=== PATIENT | female | born 1980 | race Caucasian/White ===

== ENCOUNTER 2017-06-06 18:18 | Emergency (ER) | payer OTHER ==
[~2017-06-06] VITALS: Ht 160 cm; Wt 104.3 kg
[~2017-06-06 18:18] MED LIST: CEPACOL SORE T1 EACH PO; CEPH500 PO; DOCU100 PO; HYDR1TAB94 PO; IBUP800 PO; Norco 5-325 Ta1 EACH PO; PROM25 PO; PSEU120ER PO; RANI150 PO; SIME80CH PO; Tamiflu75 MG PO; Ultram50 MG PO; Verotin-Gr Cap1 EACH PO
[2017-06-06 19:21] LABS: Bilirubin, Urine Neg (Neg); Blood, Urine 1+ (Neg); Glucose Qualitative, Urine Neg (Neg); Ketones, Urine Neg (Neg); Leukocyte Esterase, Urine 2+ (Neg); Nitrite, Urine Neg (Neg); Protein, Urine Neg (Neg); Specific Gravity, Urine 1.025 (1.003-1.022); Urobilinogen, Urine NORM (Normal)
[2017-06-06 19:29] LABS: Appearance, Urine Clear (Clear); Color, Urine Yellow (P-Yellow)
[2017-06-06 19:31] LABS: Bacteria Few /hpf; Squamous Epithelial Cells Few /hpf (Few)
[2017-06-06 19:37] LABS: BASOPHILS ABSOLUTE AUTO 0.03 K/mm3 (0.00-0.23); BASOPHILS PERCENT AUTO 0 % (0-2); EOSINOPHILS ABSOLUTE AUTO 0.33 K/mm3 (0.00-0.68); EOSINOPHILS PERCENT AUTO 5 % (0-6); Hematocrit 42.7 % (33.0-51.0); Hemoglobin 14.1 g/dL (11.5-16.0); IMMATURE GRAN ABSOLUTE AUTO 0.01 K/mm3 (0.00-0.10); IMMATURE GRAN PERCENT AUTO 0 % (0-1); LYMPHOCYTES ABSOLUTE AUTO 2.05 K/mm3 (0.84-5.20); LYMPHOCYTES PERCENT AUTO 29 % (21-46); MONOCYTES ABSOLUTE AUTO 0.45 K/mm3 (0.16-1.47); MONOCYTES PERCENT AUTO 6 % (4-13); Mean Corpuscular HGB 29.6 pg (26.0-34.0); Mean Corpuscular Volume 90 fL (80-100); Mean Platelet Volume 10.6 fL (9.1-12.4); NEUTROPHILS ABSOLUTE AUTO 4.28 K/mm3 (1.96-9.15); NEUTROPHILS PERCENT AUTO 60 % (41-73); Platelet Count 227 K/mm3 (150-400); RDW Standard Deviation 39.4 fL (35.1-46.3); Red Blood Cell Count 4.76 M/mm3 (3.80-5.20); White Blood Cell Count 7.15 K/mm3 (4.00-11.30)
[2017-06-06 19:49] LABS: Alanine Aminotransfer (ALT/SGP 25 U/L (12-78); Albumin, Blood 3.5 g/dL (3.4-5.0); Albumin/Globulin Ratio 0.8 (0.8-1.8); Alk Phos 77 U/L (50-136); Anion Gap 7 mmol/L (6-16); Aspartate Aminotrans (AST/SGOT 22 U/L (12-37); Bilirubin, Total 0.3 mg/dL (0.1-1.0); Blood Urea Nitrogen 19 mg/dL (8-24); Bun/Creatinine Ratio 29.4 (12.0-20.0); CO2, Blood 28 mmol/L (21-32); Calcium, Blood 9.2 mg/dL (8.5-10.1); Chloride, Blood 106 mmol/L (98-108); Creatinine, Blood 0.65 mg/dL (0.40-1.00); Globulin, Blood 4.2 g/dL (2.2-4.0); Glomerular Filtration Rate >60 (60-); Glucose, Blood 95 mg/dL (70-99); Potassium, Blood 3.8 mmol/L (3.5-5.5); Sodium, Blood 141 mmol/L (136-145); Total Protein, Blood 7.7 g/dL (6.4-8.2)
[2017-06-06] MEDS ORDERED: CEPH500 PO (23:06)
[2017-06-07] MEDS ORDERED: Zofran4 MG PO (13:34)
[2017-06-07] MEDS ORDERED: Naprosyn500 MG PO (13:34)
== END 2017-06-07 00:17 | disposition home or self-care (01) ==
LOC: ER 18:18
PROVIDERS: Emergency Medicine
DX: N39.0 Urinary tract infection, site not specified (principal); N83.202 Unspecified ovarian cyst, left side; Z88.5 Allergy status to narcotic agent
CPT/HCPCS: 36415; 74177; 76830; 76856; 80053; 81001; 81025; 83690; 85025; 87086; 96361; 96374; 96375; 96376; 99284; J1885; J2270; J7030; Q9967

== ENCOUNTER 2017-06-07 12:06 | Emergency (ER) | payer OTHER ==
[~2017-06-07] VITALS: Ht 160 cm; Wt 95.2 kg
[2017-06-07] MEDS ORDERED: Naprosyn500 MG PO (13:34)
[2017-06-07] MEDS ORDERED: Zofran4 MG PO (13:34)
== END 2017-06-07 14:05 | disposition home or self-care (01) ==
LOC: ER 12:06
DX: N80.9 Endometriosis, unspecified (principal); N83.202 Unspecified ovarian cyst, left side; Z88.5 Allergy status to narcotic agent; Z79.2 Long term (current) use of antibiotics
CPT/HCPCS: 96374; 96375; 99283; J1885; J2060; J2405

== ENCOUNTER 2017-12-23 19:24 | Emergency (ER) | payer OTHER ==
[~2017-12-23] VITALS: Ht 172.7 cm; Wt 85.7 kg
[~2017-12-23 19:24] MED LIST changes: +Naprosyn500 MG PO; +Zofran4 MG PO
[2017-12-23 20:11] LABS: BASOPHILS ABSOLUTE AUTO 0.06 K/mm3 (0.00-0.23); BASOPHILS PERCENT AUTO 1 % (0-2); EOSINOPHILS ABSOLUTE AUTO 0.28 K/mm3 (0.00-0.68); EOSINOPHILS PERCENT AUTO 4 % (0-6); Hematocrit 38.7 % (33.0-51.0); IMMATURE GRAN ABSOLUTE AUTO 0.01 K/mm3 (0.00-0.10); IMMATURE GRAN PERCENT AUTO 0 % (0-1); LYMPHOCYTES ABSOLUTE AUTO 2.28 K/mm3 (0.84-5.20); LYMPHOCYTES PERCENT AUTO 30 % (21-46); MONOCYTES ABSOLUTE AUTO 0.56 K/mm3 (0.16-1.47); MONOCYTES PERCENT AUTO 8 % (4-13); Mean Corpuscular HGB 31.3 pg (26.0-34.0); Mean Corpuscular HGB Conc 33.6 g/dL (31.5-36.5); Mean Corpuscular Volume 93 fL (80-100); Mean Platelet Volume 11.3 fL (9.1-12.4); NEUTROPHILS PERCENT AUTO 58 % (41-73); Platelet Count 240 K/mm3 (150-400); RDW Standard Deviation 41.5 fL (35.1-46.3); Red Blood Cell Count 4.16 M/mm3 (3.80-5.20); White Blood Cell Count 7.49 K/mm3 (4.00-11.30)
[2017-12-23 20:30] LABS: Alanine Aminotransfer (ALT/SGP 58 U/L (12-78); Albumin, Blood 3.3 g/dL (3.4-5.0); Albumin/Globulin Ratio 0.8 (0.8-1.8); Alk Phos 63 U/L (50-136); Anion Gap 7 mmol/L (6-16); Aspartate Aminotrans (AST/SGOT 30 U/L (12-37); Bilirubin, Total 0.4 mg/dL (0.1-1.0); Blood Urea Nitrogen 10 mg/dL (8-24); Bun/Creatinine Ratio 10.4 (12.0-20.0); CO2, Blood 26 mmol/L (21-32); Calcium, Blood 8.5 mg/dL (8.5-10.1); Chloride, Blood 107 mmol/L (98-108); Creatinine, Blood 0.96 mg/dL (0.40-1.00); Globulin, Blood 4.1 g/dL (2.2-4.0); Glomerular Filtration Rate >60 (60-); Glucose, Blood 90 mg/dL (70-99); Potassium, Blood 3.6 mmol/L (3.5-5.5); Sodium, Blood 140 mmol/L (136-145); Total Protein, Blood 7.4 g/dL (6.4-8.2)
[2017-12-23 21:05] LABS: Source, Urine Clean Catch
[2017-12-23 21:21] LABS: Appearance, Urine Clear (Clear); Bilirubin, Urine Neg (Neg); Blood, Urine 1+ (Neg); Color, Urine Yellow (P-Yellow); Glucose Qualitative, Urine Neg (Neg); Ketones, Urine Neg (Neg); Leukocyte Esterase, Urine Neg (Neg); Nitrite, Urine Neg (Neg); Protein, Urine Neg (Neg); Urobilinogen, Urine 2+ (Normal)
[2017-12-23 21:23] LABS: Bacteria Not Seen /hpf; Squamous Epithelial Cells Few /hpf (Few); White Blood Cells, Urine 0-2 /hpf (0-5); Yeast/Fungi Urine Few /hpf
[2017-12-24] MEDS ORDERED: Ultram50 MG PO (00:35)
[2017-12-24] MEDS ORDERED: Kristalose20 GM PO (00:35)
[2017-12-24] MEDS ORDERED: IBUP400 PO (00:35)
== END 2017-12-24 00:51 | disposition home or self-care (01) ==
LOC: ER 19:24
PROVIDERS: Emergency Medicine
DX: K59.00 Constipation, unspecified (principal); Z88.5 Allergy status to narcotic agent
CPT/HCPCS: 36415; 74176; 80053; 81001; 81025; 83690; 85025; 87086; 96374; 96375; 99284-25; J1885; J2405; J3010

== ENCOUNTER 2018-06-03 15:54 | Emergency (ER) | payer OTHER ==
[~2018-06-03] VITALS: Ht 160 cm; Wt 86.2 kg
[~2018-06-03 15:54] MED LIST changes: +IBUP400 PO; +Kristalose20 GM PO
[2018-06-03 17:05] LABS: BASOPHILS ABSOLUTE AUTO 0.05 K/mm3 (0.00-0.23); BASOPHILS PERCENT AUTO 1 % (0-2); EOSINOPHILS ABSOLUTE AUTO 0.26 K/mm3 (0.00-0.68); EOSINOPHILS PERCENT AUTO 4 % (0-6); Hematocrit 41.2 % (33.0-51.0); Hemoglobin 13.7 g/dL (11.5-16.0); IMMATURE GRAN ABSOLUTE AUTO 0.01 K/mm3 (0.00-0.10); IMMATURE GRAN PERCENT AUTO 0 % (0-1); LYMPHOCYTES ABSOLUTE AUTO 2.36 K/mm3 (0.84-5.20); LYMPHOCYTES PERCENT AUTO 36 % (21-46); MONOCYTES ABSOLUTE AUTO 0.53 K/mm3 (0.16-1.47); MONOCYTES PERCENT AUTO 8 % (4-13); Mean Corpuscular HGB 31.9 pg (26.0-34.0); Mean Corpuscular HGB Conc 33.3 g/dL (31.5-36.5); Mean Corpuscular Volume 96 fL (80-100); Mean Platelet Volume 10.4 fL (9.1-12.4); NEUTROPHILS ABSOLUTE AUTO 3.28 K/mm3 (1.96-9.15); NEUTROPHILS PERCENT AUTO 50 % (41-73); Platelet Count 255 K/mm3 (150-400); RDW Standard Deviation 42.1 fL (35.1-46.3); White Blood Cell Count 6.49 K/mm3 (4.00-11.30)
[2018-06-03 17:35] LABS: Anion Gap 5 mmol/L (6-16); Blood Urea Nitrogen 15 mg/dL (8-24); Bun/Creatinine Ratio 22.6 (12.0-20.0); CO2, Blood 29 mmol/L (21-32); Calcium, Blood 8.7 mg/dL (8.5-10.1); Chloride, Blood 106 mmol/L (98-108); Creatinine, Blood 0.67 mg/dL (0.40-1.00); Glomerular Filtration Rate >60 (60-); Glucose, Blood 112 mg/dL (70-99); Potassium, Blood 3.9 mmol/L (3.5-5.5); Sodium, Blood 140 mmol/L (136-145)
[2018-06-03] MEDS ORDERED: BIRTH CONTROL (17:44)
[2018-06-03 18:43] LABS: Source, Urine Clean Catch
[2018-06-03 18:46] LABS: Bilirubin, Urine Neg (Neg); Blood, Urine 1+ (Neg); Glucose Qualitative, Urine Neg (Neg); Ketones, Urine Neg (Neg); Leukocyte Esterase, Urine Neg (Neg); Nitrite, Urine Neg (Neg); Protein, Urine 1+ (Neg); Urobilinogen, Urine 2+ (Normal); pH, Urine 6.5 (5.0-8.0)
[2018-06-03 18:52] LABS: Free Thyroxine 1.01 ng/dL (0.70-1.60)
[2018-06-03 18:53] LABS: Thyroid Stimulating Hormone 2.44 uIU/mL (0.360-4.800)
[2018-06-03 19:14] LABS: Appearance, Urine Hazy (Clear); Color, Urine Yellow (P-Yellow)
[2018-06-03 19:16] LABS: Bacteria Few /hpf; Squamous Epithelial Cells Few /hpf (Few); White Blood Cells, Urine Rare /hpf (0-5)
== END 2018-06-03 20:00 | disposition home or self-care (01) ==
LOC: ER 15:54
PROVIDERS: Emergency Medicine; Physician Assistant
DX: N95.1 Menopausal and female climacteric states (principal); R51 Headache; R11.0 Nausea; Z88.5 Allergy status to narcotic agent; Z88.8 Allergy status to other drugs, medicaments and biological substances
CPT/HCPCS: 36415; 80048; 81001; 84439; 84443; 84703; 85025; 85379; 99284

== ENCOUNTER 2018-08-21 05:33 | Day surgery (SDC) | payer OTHER ==
[2018-08-20 10:22] LABS: Hematocrit 40.8 % (33.0-51.0); Hemoglobin 13.5 g/dL (11.5-16.0); Mean Corpuscular HGB 31.3 pg (26.0-34.0); Mean Corpuscular HGB Conc 33.1 g/dL (31.5-36.5); Mean Corpuscular Volume 95 fL (80-100); Mean Platelet Volume 11.2 fL (9.1-12.4); Platelet Count 247 K/mm3 (150-400); RDW Coefficient Variation 11.9 % (11.7-14.2); RDW Standard Deviation 41.5 fL (35.1-46.3); Red Blood Cell Count 4.31 M/mm3 (3.80-5.20); White Blood Cell Count 5.36 K/mm3 (4.00-11.30)
[~2018-08-21] VITALS: Ht 160 cm; Wt 89.1 kg
[~2018-08-21 05:33] MED LIST changes: +BIRTH CONTROL PO; +TRAM50 PO
--- NOTE | 2018-08-21 06:31 | NUR ---
History, Chart, Medications and Allergies reviewed before start of procedure. Patient confirms NPO status and agrees with scheduled surgery. Lungs clear T/O to Auscultation. Patient reports completing Chlorhexadine shower X2 prior to admission to hospital. Pre-Op teaching done. Pt verbalizes understanding. PATIENT NERVOUS AND OCCASIONALLY TEARFUL. NO JEWELRY ON TO REMOVE AT ADMIT.
--- NOTE | 2018-08-21 06:46 | NUR ---
TRACKER CARD EXPLAINED AND OPPORTUNITY FOR QUESTIONS PROVIDED. FAMILY BACK TO SEE PATIENT PRESURGICALLY, THEN WILL WAIT IN WAITING AREA PER FAMILY AND PATIENT.
--- NOTE | 2018-08-21 17:07 | NUR ---
SHIFT SUMMARY S/P LAVH TODAY. POST OP VSS. PT RECEIVING 1MG IV DILAUDID FOR PAIN PRN AND ORAL ULTRAM. BREANN CRACKERS AND CLEAR LIQS WITH NO N/V. LAP SITES TO ABD ARE CDI. NO BLEEDING ON FARIHA PAD NOTED AT THIS TIME. IVF INFUSING PER ORDERS. GONCALVES WITH YELLOW URINE. PLANNING TO STAND/WALK PT AFTER DINNER. CALL LIGHT WITHIN REACH. FAMILY AT BEDSIDE FOR SUPPORT.
[2018-08-22 04:08] LABS: BASOPHILS ABSOLUTE AUTO 0.03 K/mm3 (0.00-0.23); BASOPHILS PERCENT AUTO 0 % (0-2); EOSINOPHILS ABSOLUTE AUTO 0.03 K/mm3 (0.00-0.68); EOSINOPHILS PERCENT AUTO 0 % (0-6); Hematocrit 36.9 % (33.0-51.0); Hemoglobin 11.8 g/dL (11.5-16.0); IMMATURE GRAN ABSOLUTE AUTO 0.02 K/mm3 (0.00-0.10); IMMATURE GRAN PERCENT AUTO 0 % (0-1); LYMPHOCYTES ABSOLUTE AUTO 1.73 K/mm3 (0.84-5.20); LYMPHOCYTES PERCENT AUTO 23 % (21-46); MONOCYTES ABSOLUTE AUTO 0.69 K/mm3 (0.16-1.47); MONOCYTES PERCENT AUTO 9 % (4-13); Mean Corpuscular HGB 30.3 pg (26.0-34.0); Mean Corpuscular Volume 95 fL (80-100); Mean Platelet Volume 10.9 fL (9.1-12.4); NEUTROPHILS ABSOLUTE AUTO 4.88 K/mm3 (1.96-9.15); NEUTROPHILS PERCENT AUTO 66 % (41-73); Platelet Count 232 K/mm3 (150-400); RDW Coefficient Variation 11.9 % (11.7-14.2); RDW Standard Deviation 40.8 fL (35.1-46.3); Red Blood Cell Count 3.89 M/mm3 (3.80-5.20); White Blood Cell Count 7.38 K/mm3 (4.00-11.30)
--- NOTE | 2018-08-22 07:50 | NUR ---
pt laying in bed wathching tv reports pain 3/10 passed flatus x1 no nausea at this time sultana removed this am no void yet instructed pt to call with first void pads in bathroom dressing cdi
--- NOTE | 2018-08-22 09:33 | NUR ---
increased diet to fl diet pt just voided 300 ml per pad changed small amt of bleeding dr gonzalez by to see pt
[2018-08-22] MEDS ORDERED: ESTR2 PO (10:34)
[2018-08-22] MEDS ORDERED: HYDMOR2 PO (10:36)
[2018-08-22] MEDS ORDERED: IBUP800 PO (10:37)
[2018-08-22] MEDS ORDERED: PROM25 PO (10:39)
--- NOTE | 2018-08-22 11:25 | NUR ---
discharge instructions reviewed with pt verbalized rx given pt visiting with family
--- NOTE | 2018-08-22 12:09 | NUR ---
pt eating lunch offered ultram pt declined
--- NOTE | 2018-08-22 14:26 | NUR ---
PO PAIN MEDS GIVEN WC ESCORT TO CAR BINDER PLACED BEFORE PT GOT DRESSED
== END 2018-08-22 14:26 | disposition home or self-care (01) ==
LOC: ORSCMMR 05:33 → ORD 07:30 → ORSCMMR 07:30 → SURS 09:52 → ORSCMMR 08-22 14:26
PROVIDERS: Obstetrics & Gynecology
PROC: 0UT2FZZ Resection of Bilateral Ovaries, Via Natural or Artificial Opening With Percutaneous Endoscopic Assistance (ICD-10-PCS; principal; 2018-08-21 07:30)
PROC: 0UT9FZZ Resection of Uterus, Via Natural or Artificial Opening With Percutaneous Endoscopic Assistance (ICD-10-PCS; principal; 2018-08-21 07:30)
PROC: 0UT7FZZ Resection of Bilateral Fallopian Tubes, Via Natural or Artificial Opening With Percutaneous Endoscopic Assistance (ICD-10-PCS; principal; 2018-08-21 07:30)
DX: N80.3 Endometriosis of pelvic peritoneum (principal); N94.6 Dysmenorrhea, unspecified; R10.2 Pelvic and perineal pain
CPT/HCPCS: 36415; 84703; 85025; 85027; 86850; 86900; 86901; 88307; J0690; J1100; J1170; J1885; J2250; J2405; J2704; J2710; J3010; J7120

== ENCOUNTER 2024-04-27 08:35 | Emergency (ER) | payer OTHER ==
[~2024-04-27] VITALS: Ht 157.5 cm; Wt 117.9 kg
[~2024-04-27 08:35] MED LIST changes: +ESTR2 PO; +HYDMOR2 PO
[2024-04-27] MEDS ORDERED: Cyclobenzaprine5 MG PO (09:28)
[2024-04-27] MEDS ORDERED: LOSA25 PO (09:28)
[2024-04-27 09:36] LABS: BASOPHILS ABSOLUTE AUTO 0.04 K/mm3 (0.00-0.23); BASOPHILS PERCENT AUTO 1 % (0-2); EOSINOPHILS ABSOLUTE AUTO 0.17 K/mm3 (0.00-0.68); EOSINOPHILS PERCENT AUTO 3 % (0-6); Hematocrit 42.6 % (33.0-51.0); Hemoglobin 14.2 g/dL (11.5-16.0); IMMATURE GRAN ABSOLUTE AUTO 0.02 K/mm3 (0.00-0.10); IMMATURE GRAN PERCENT AUTO 0 % (0-1); LYMPHOCYTES ABSOLUTE AUTO 1.33 K/mm3 (0.84-5.20); LYMPHOCYTES PERCENT AUTO 20 % (21-46); MONOCYTES ABSOLUTE AUTO 0.39 K/mm3 (0.16-1.47); MONOCYTES PERCENT AUTO 6 % (4-13); Mean Corpuscular HGB 30.4 pg (26.0-34.0); Mean Corpuscular HGB Conc 33.3 g/dL (31.5-36.5); Mean Corpuscular Volume 91 fL (80-100); Mean Platelet Volume 9.9 fL (9.1-12.4); NEUTROPHILS ABSOLUTE AUTO 4.72 K/mm3 (1.96-9.15); NEUTROPHILS PERCENT AUTO 71 % (41-73); Platelet Count 242 K/mm3 (150-400); RDW Coefficient Variation 12.3 % (11.7-14.2); Red Blood Cell Count 4.67 M/mm3 (3.80-5.20); White Blood Cell Count 6.67 K/mm3 (4.00-11.30)
[2024-04-27] MEDS ORDERED: Ondansetron HCl 2 MG / ML 2ML Vial IV ONE (09:45)
[2024-04-27] MEDS ORDERED: Morphine Sulfate 4 MG/1 ML Injection IV ONE (09:45)
[2024-04-27 10:04] LABS: Albumin, Blood 3.5 g/dL (3.4-5.0); Albumin/Globulin Ratio 0.8 (0.8-1.8); Bilirubin, Total 0.6 mg/dL (0.1-1.0); Bun/Creatinine Ratio 16.1 (12.0-20.0); C-REACTIVE PROTEIN, EXT RANGE 1.47 mg/dL (0.000-0.300); Calcium, Blood 9.5 mg/dL (8.5-10.1); Creatinine, Blood 0.75 mg/dL (0.40-1.00); Globulin, Blood 4.3 g/dL (2.2-4.0); Potassium, Blood 4.2 mmol/L (3.5-5.5); Total Protein, Blood 7.8 g/dL (6.4-8.2)
[2024-04-27] MEDS ORDERED: HYDROmorphone HCl/Pf 1MG SYR IV ONE (11:10)
[2024-04-27] MEDS ORDERED: PRED20 PO (12:45)
[2024-04-27] MEDS ORDERED: LIDO700A20 TOP (12:45)
[2024-04-27 12:58] VITALS: BP 175/85
== END 2024-04-27 12:59 | disposition home or self-care (01) ==
LOC: ER 08:35
PROVIDERS: Physician Assistant
DX: M54.2 Cervicalgia (principal); J45.909 Unspecified asthma, uncomplicated; Z79.899 Other long term (current) drug therapy; Z88.5 Allergy status to narcotic agent; Z91.048 Other nonmedicinal substance allergy status
CPT/HCPCS: 70498; 80053; 85025; 85651; 86140; 93971; 96374-59; 96375; 99284-25; J1171; J2270; J2405; Q9967

== ENCOUNTER → 2024-08-10 | Outpatient (CLI) | payer OTHER ==
[~2024-08-10] MED LIST changes: +Cyclobenzaprine5 MG PO; +LIDO700A20 TOP; +LOSA25 PO; +PRED20 PO
[2024-08-10 11:00] LABS: BASOPHILS ABSOLUTE AUTO 0.04 K/mm3 (0.00-0.23); BASOPHILS PERCENT AUTO 1 % (0-2); EOSINOPHILS ABSOLUTE AUTO 0.19 K/mm3 (0.00-0.68); EOSINOPHILS PERCENT AUTO 3 % (0-6); Hematocrit 40.8 % (33.0-51.0); Hemoglobin 13.6 g/dL (11.5-16.0); IMMATURE GRAN ABSOLUTE AUTO 0.01 K/mm3 (0.00-0.10); IMMATURE GRAN PERCENT AUTO 0 % (0-1); LYMPHOCYTES ABSOLUTE AUTO 1.54 K/mm3 (0.84-5.20); LYMPHOCYTES PERCENT AUTO 25 % (21-46); MONOCYTES ABSOLUTE AUTO 0.43 K/mm3 (0.16-1.47); MONOCYTES PERCENT AUTO 7 % (4-13); Mean Corpuscular HGB 29.6 pg (26.0-34.0); Mean Corpuscular HGB Conc 33.3 g/dL (31.5-36.5); Mean Corpuscular Volume 89 fL (80-100); Mean Platelet Volume 10.1 fL (9.1-12.4); NEUTROPHILS ABSOLUTE AUTO 3.87 K/mm3 (1.96-9.15); NEUTROPHILS PERCENT AUTO 64 % (41-73); Platelet Count 241 K/mm3 (150-400); RDW Coefficient Variation 12.4 % (11.7-14.2); White Blood Cell Count 6.08 K/mm3 (4.00-11.30)
[2024-08-10 11:08] LABS: Albumin, Blood 3.4 g/dL (3.4-5.0); Albumin/Globulin Ratio 0.8 (0.8-1.8); Bilirubin, Total 0.5 mg/dL (0.1-1.0); Bun/Creatinine Ratio 32.9 (12.0-20.0); Calcium, Blood 9.1 mg/dL (8.5-10.1); Creatinine, Blood 0.7 mg/dL (0.40-1.00); Globulin, Blood 4.2 g/dL (2.2-4.0); Total Protein, Blood 7.6 g/dL (6.4-8.2)
== END | disposition home or self-care (01) ==
LOC: LAB SHORT 10:53 → LAB 10:53
PROVIDERS: Family Medicine
DX: I10 Essential (primary) hypertension (principal)
CPT/HCPCS: 80053; 85025